=== PATIENT | female | born 1965 | race Caucasian/White ===

== ENCOUNTER 2019-08-20 08:20 | Outpatient (CLI) | payer BC, MEDICAID ==
[2019-08-20] VITALS (8 sets, daily range): BP systolic 107–127; BP diastolic 71–80
[~2019-08-20] VITALS: Ht 152.4 cm; Wt 65.9 kg
[2019-08-20] MEDS ORDERED: normal saline 500ml IV soln 500 ML IV ONE (10:00)
[2019-08-20] MEDS ORDERED: nitroGLYCERIN 0.4mg SUBLingual tab SL PRN (10:00)
[2019-08-20] MEDS ORDERED: aminophylline 250mg/10ml inj. IV PRN (10:00)
[2019-08-20] MEDS ORDERED: regadenoson 0.4mg/5ml syringe IV PRN (10:00)
== END 2019-08-20 23:59 | disposition home or self-care (01) ==
LOC: RAD 08:20
PROVIDERS: ATTEND Internal Medicine Cardiovascular Disease
DX: I20.8 Other forms of angina pectoris (principal)
CPT/HCPCS: 78452; 93017; A9500; J2785; J7040